=== PATIENT | male | born 1930 ===

== ENCOUNTER 2016-09-20 08:32 | Inpatient (IN) | payer MEDICARE, BC ==
[~2016-09-20] VITALS: Ht 180.3 cm; Wt 57.7 kg
[~2016-09-20 08:32] MED LIST: IPRATROPIUM BROM3 M1 IH; IRON325 MG PO; MIRALAX 17GM PK1 PKT PO; MUCINEX 60600 MG/TA1 PO; NORCO 325 MG-7.1 TAB PO; PEPCID 20MG TAB20 MG PO; PREDNISONE 5MG5 MG PO; PROSCAR 5MG5 MG PO; PROTONIX 40MG T40 MG PO; PULMICORT0.5 MG/2 M IH; SINGULAIR10 MG PO; TYLENOL 500MG500 MG PO; VITAMIN B-1000 MCG/T PO; VITAMIN B-1100 MG PO; VITAMIN D1000 IU PO; [UNRECOGNIZED DRUG - OTHER] PO
[2016-09-20] MEDS ORDERED: SINGULAIR 110 MG/TAB PO (09:30)
[2016-09-20] MEDS ORDERED: NATURE'S BLEND100 M2 PO (09:30)
[2016-09-21] VITALS (10 sets, daily range): BP systolic 111–163; BP diastolic 52–94; PULSE 57–89; TEMP 98–98.2
[2016-09-21] MEDS ORDERED: AQUAPHOR HEALING41% TP (14:31)
[2016-09-21] MEDS ORDERED: ASPIRIN E.C. 8181 MG PO (14:31)
[2016-09-21] MEDS ORDERED: FENTANYL 25 MCG TD (14:31)
[2016-09-21] MEDS ORDERED: CARDI-OMEGA1000 MG PO (14:33)
[2016-09-21] MEDS ORDERED: FLOMAX 0.40.4 MG/CAP PO (14:33)
[2016-09-21] MEDS ORDERED: LINZESS145CAP PO (14:34)
[2016-09-21] MEDS ORDERED: NORCO 325 MG-7.1 TAB PO (14:35)
[2016-09-21] MEDS ORDERED: SINGULAIR 110 MG/TAB PO (14:36)
[2016-09-21] MEDS ORDERED: B-12 500 MCG PO (14:38)
[2016-09-21] MEDS ORDERED: VITAMIN D32000 IU PO (14:39)
[2016-09-21] MEDS ORDERED: [UNRECOGNIZED DRUG - SUPPLY] TP (14:40)
[2016-09-22 01:41] VITALS: BP 91/44; PULSE 71; TEMP 97.5
[2016-09-22 05:11] VITALS: BP 115/56; PULSE 70; TEMP 97.2
[2016-09-22 10:17] VITALS: BP 114/80; PULSE 80; TEMP 97.6
[2016-09-22 13:51] VITALS: BP 118/79; PULSE 98; TEMP 97.1
[2016-09-22 14:42] VITALS: BP 118/79; PULSE 98; TEMP 97.1
[2016-09-22 14:49] VITALS: BP 118/79; PULSE 98; TEMP 97.1
== END 2016-09-22 16:05 | DRG 240 ==
LOC: SURG 09-21 07:30 → INPTSU 09-21 12:39 → SURG 09-21 13:00
PROVIDERS: Orthopaedic Surgery
PROC: 0Y6N0ZB Detachment at Left Foot, Partial 2nd Ray, Open Approach (ICD-10-PCS; 2016-09-21)
PROC: 0Y6N0ZC Detachment at Left Foot, Partial 3rd Ray, Open Approach (ICD-10-PCS; 2016-09-21)
PROC: 0Y6N0ZD Detachment at Left Foot, Partial 4th Ray, Open Approach (ICD-10-PCS; 2016-09-21)
PROC: 0Y6N0ZF Detachment at Left Foot, Partial 5th Ray, Open Approach (ICD-10-PCS; 2016-09-21)
PROC: 0Y6N0Z9 Detachment at Left Foot, Partial 1st Ray, Open Approach (ICD-10-PCS; principal; 2016-09-21 15:00)
DX: I70.262 Atherosclerosis of native arteries of extremities with gangrene, left leg (principal); M86.672 Other chronic osteomyelitis, left ankle and foot; L98.499 Non-pressure chronic ulcer of skin of other sites with unspecified severity; J44.9 Chronic obstructive pulmonary disease, unspecified; J45.909 Unspecified asthma, uncomplicated; Z87.891 Personal history of nicotine dependence
CPT/HCPCS: J0690; J1100; J1170; J2270; J2405; J2704; J7120; J7512

== ENCOUNTER 2016-10-10 13:25 | Inpatient (IN) | payer MEDICARE, BC ==
[~2016-10-10] VITALS: Ht 180.3 cm; Wt 60.0 kg
[~2016-10-10 13:25] MED LIST changes: +AQUAPHOR HEALING41% TP; +ASPIRIN E.C. 8181 MG PO; +B-12 500 MCG PO; +CARDI-OMEGA1000 MG PO; +FENTANYL 25 MCG TD; +FLOMAX 0.40.4 MG/CAP PO; +LINZESS145CAP PO; +NATURE'S BLEND100 M2 PO; +SINGULAIR 110 MG/TAB PO; +VITAMIN D32000 IU PO; +[UNRECOGNIZED DRUG - SUPPLY] TP
[2016-10-13] VITALS (7 sets, daily range): BP systolic 98–142; BP diastolic 54–107; PULSE 61–83; TEMP 97.6–97.7
[2016-10-13] MEDS ORDERED: MIRALAX PA17 GM/Dose PO (12:20)
[2016-10-13] MEDS ORDERED: BACTRIM DS 8001 TAB PO (12:23)
[2016-10-14] VITALS (7 sets, daily range): BP systolic 84–133; BP diastolic 49–65; PULSE 60–68; TEMP 97.3–98.7
[2016-10-14 11:27] LABS: HEMOGLOBIN 10.6 g/dl (13.5-18.0)
[2016-10-15 05:02] VITALS: BP 128/49; PULSE 70; TEMP 97.6
[2016-10-15 09:58] VITALS: BP 110/62; PULSE 76
[2016-10-15 14:38] VITALS: BP 107/54; PULSE 79; TEMP 98.3
[2016-10-15 17:25] VITALS: BP 143/69; PULSE 88; TEMP 98.6
[2016-10-15 21:12] VITALS: BP 119/37; PULSE 59; TEMP 98
[2016-10-16 05:30] VITALS: BP 114/54; PULSE 72; TEMP 97.7
[2016-10-16 09:23] VITALS: BP 114/65; PULSE 79; TEMP 97.2
[2016-10-16 10:23] VITALS: BP 114/65; PULSE 79; TEMP 97.2
== END 2016-10-16 11:45 | DRG 240 ==
LOC: INPTSU 10-13 09:23 → SURG 10-13 11:30
PROVIDERS: Family Medicine; Orthopaedic Surgery
PROC: 0Y6J0Z1 Detachment at Left Lower Leg, High, Open Approach (ICD-10-PCS; principal; 2016-10-13 11:30)
DX: I70.244 Atherosclerosis of native arteries of left leg with ulceration of heel and midfoot (principal); M86.672 Other chronic osteomyelitis, left ankle and foot; L97.424 Non-pressure chronic ulcer of left heel and midfoot with necrosis of bone; T87.81 Dehiscence of amputation stump; J44.9 Chronic obstructive pulmonary disease, unspecified; J45.909 Unspecified asthma, uncomplicated; Z87.891 Personal history of nicotine dependence; Z89.432 Acquired absence of left foot
CPT/HCPCS: J0690; J2250; J2270; J2704; J2795; J3010; J7120; J7512